=== PATIENT | female | born 2000 | race Caucasian/White ===

== ENCOUNTER 2021-06-21 09:41 | Observation (INO) | payer OTHER ==
[~2021-06-21] VITALS: Ht 162.6 cm; Wt 127.0 kg
[2021-06-21 11:15] LABS: CLARITY URINE CLOUDY (CLEAR); COLOR URINE YELLOW (YELLOW); KETONES URINE TRACE (NEGATIVE); LEUKOCYTE ESTERASE URINE 2+ (NEGATIVE); NITRITE URINE NEGATIVE (NEGATIVE); OCCULT BLOOD URINE 2+ (NEGATIVE); PROTEIN URINE TRACE (NEGATIVE); SPECIFIC GRAVITY URINE 1.026 (1.005-1.030)
[2021-06-21] MEDS: LACTATED RINGERS 1,000 ML IV SCH ×2 (12:15→13:23)
[2021-06-21] MEDS ORDERED: CEFAZOLIN 2,000 MG in DEXT 5% WATER 100 ML IV NR (13:00)
== END 2021-06-21 17:30 | disposition home or self-care (01) ==
LOC: 8 EST LDRP 09:41
PROVIDERS: ADMIT Obstetrics & Gynecology; ATTEND Obstetrics & Gynecology
DX: O46.93 Antepartum hemorrhage, unspecified, third trimester (principal); O26.893 Other specified pregnancy related conditions, third trimester; R10.9 Unspecified abdominal pain; Z3A.29 29 weeks gestation of pregnancy
CPT/HCPCS: 59025; 76805; 76818; 81003; 96361; 96365; G0378; J0690; J7060; J7120; 99281

== ENCOUNTER 2021-08-28 10:06 | Inpatient (IN) | payer OTHER ==
[~2021-08-28] VITALS: Ht 167.6 cm; Wt 119.7 kg
[2021-08-28] MEDS ORDERED: METHYLERGONOVINE MALEATE 0.2 MG/ML IM PRN (11:00)
[2021-08-28] MEDS ORDERED: DEXT 5%/LR + PITOCIN 20UNITS/L 1,000 ML IV SCH (11:00)
[2021-08-28] MEDS ORDERED: NALOXONE HCL 0.4 MG/ML 1ML VIAL IM PRN (11:00)
[2021-08-28] MEDS ORDERED: LIDOCAINE HCL 1% 20ML VIAL (Pyxis) INJ INFIL SCH (11:00)
[2021-08-28 12:30] LABS: BASOPHILS % 0.2 % (0.0-2.0); EOSINOPHILS % 0.7 % (0.0-5.0); HEMATOCRIT. 32.3 % (36.0-48.0); HEMOGLOBIN. 10.4 g/dL (12.0-16.0); LYMPHOCYTES % 15.2 % (20.0-50.0); MEAN CORPUSCULAR VOLUME 77.7 fL (81.0-99.0); MEAN PLATELET VOLUME 10.9 fl (7.4-10.4); NEUTROPHILS % 76.9 % (40.0-76.0); PLATELET 186 x1000/uL (130-400); RED BLOOD CELL COUNT 4.16 mill/uL (4.2-5.4); RED CELL DISTRIBUTION WIDTH 15.9 % (11.6-14.6)
[2021-08-28] MEDS ORDERED: PENICILLIN G POTASSIUM 5 MMU in DEXT 5% WATER 100 ML IV SCH (12:30)
[2021-08-28 12:40] LABS: INR 0.9; PARTIAL THROMBOPLASTIN TIME 24.3 sec (23.4-31.0); PROTHROMBIN TIME 10.2 sec (9.6-11.0)
[2021-08-28 13:12] LABS: HEPATITIS B SURFACE ANTIGEN NEGATIVE
[2021-08-28] MEDS: LACTATED RINGERS 1,000 ML IV SCH ×2 (13:12→20:58)
[2021-08-28 13:17] LABS: CLARITY URINE CLEAR (CLEAR); COLOR URINE DARK YELLOW (YELLOW); KETONES URINE TRACE (NEGATIVE); LEUKOCYTE ESTERASE URINE TRACE (NEGATIVE); NITRITE URINE NEGATIVE (NEGATIVE); OCCULT BLOOD URINE NEGATIVE (NEGATIVE); PROTEIN URINE 1+ (NEGATIVE)
[2021-08-28 13:41] LABS: *AMPHETAMINES SCREEN URINE NEGATIVE (NEGATIVE); *BARBITURATES SCREEN URINE NEGATIVE (NEGATIVE); *BENZODIAZEPINES SCREEN URINE NEGATIVE (NEGATIVE); *COCAINE SCREEN URINE NEGATIVE (NEGATIVE); CANNABINOID URINE SCREEN NEGATIVE (NEGATIVE); METHADONE URINE SCREEN NEGATIVE (NEGATIVE); PHENCYCLIDINE URINE SCREEN NEGATIVE (NEGATIVE)
[2021-08-28 13:42] LABS: OPIATES URINE SCREEN NEGATIVE (NEGATIVE)
[2021-08-28] MEDS: PENICILLIN G POTASSIUM 2.5 MMU in DEXTROSE 5% WATER 50 ML IV SCH ×2 (18:15→22:20)
[2021-08-28] MEDS: BUTORPHANOL TARTRATE 2 MG/ML VIAL IV PRN ×2 (18:24→21:41)
[2021-08-28] MEDS ORDERED: ROPIVACAINE HCL/PF EPIDURAL 200 ML EPI ONE (23:51)
[2021-08-29] MEDS: LACTATED RINGERS 1,000 ML IV SCH (00:30)
[2021-08-29] MEDS ORDERED: RHO(D) IMMUNE GLOBULIN 300 MCG/SYR IM PRN (03:00)
[2021-08-29] MEDS ORDERED: BENZOCAINE/LANOLIN/ALOE VERA SPRAY TOP PRN (03:00)
[2021-08-29] MEDS ORDERED: DIPHENHYDRAMINE 25MG CAPSULE PO PRN (03:00)
[2021-08-29] MEDS ORDERED: HEMORRHOIDAL SUPP PR PRN (03:00)
[2021-08-29] MEDS ORDERED: LANOLIN OINT 7GM TUBE TOP PRN (03:00)
[2021-08-29] MEDS ORDERED: IBUPROFEN 400MG TABLET PO PRN (03:00)
[2021-08-29] MEDS ORDERED: DEXT 5%/LR + PITOCIN 20UNITS/L 1,000 ML IV SCH (03:00)
[2021-08-29] MEDS ORDERED: GLYCERIN/WITCH HAZEL LEAF MEDICATED PAD TOP PRN (03:00)
[2021-08-29] MEDS ORDERED: BISACODYL 10MG SUPP PR PRN (03:00)
[2021-08-29 03:45] VITALS: BP 135/74
[2021-08-29] MEDS: IBUPROFEN 800MG TABLET PO PRN ×2 (04:04→13:21)
[2021-08-29 07:55] VITALS: BP 117/69
[2021-08-29] MEDS: MAGNESIUM/ALUMINUM HYDROXIDE/SIMETHICONE 30ML UDC PO SCH ×4 (08:11→21:17)
[2021-08-29] MEDS: PRENATAL VIT/FE FUMARATE/FA TABLET PO SCH (08:11)
[2021-08-29] MEDS: ACETAMINOPHEN WITH CODEINE 300/30MG TABLET PO PRN ×2 (08:11→18:51)
[2021-08-29] MEDS: SIMETHICONE 80MG TABLET CHEW PO SCH ×4 (08:12→21:17)
[2021-08-29 16:30] VITALS: BP_SYST 119; BP_SYST 135; BP_DIAS 49; BP_DIAS 71
[2021-08-29 20:00] VITALS: BP 131/56
[2021-08-29] MEDS ORDERED: DOCUSATE SODIUM 100MG CAPSULE PO SCH (21:00)
[2021-08-30] MEDS: IBUPROFEN 800MG TABLET PO PRN ×2 (00:49→10:01)
[2021-08-30 04:08] VITALS: BP 126/64
[2021-08-30] MEDS: ACETAMINOPHEN WITH CODEINE 300/30MG TABLET PO PRN (05:59)
[2021-08-30 06:59] LABS: BASOPHILS % 0.5 % (0.0-2.0); HEMATOCRIT. 29.2 % (36.0-48.0); HEMOGLOBIN. 9.6 g/dL (12.0-16.0); MEAN CORPUSCULAR HEMOGLOBIN 25.5 pg (28.0-32.0); MEAN CORPUSCULAR VOLUME 77.3 fL (81.0-99.0); MEAN PLATELET VOLUME 11.1 fl (7.4-10.4); MONOCYTES % 7.2 % (2.0-8.0); NEUTROPHILS % 67.3 % (40.0-76.0); PLATELET 160 x1000/uL (130-400); RED BLOOD CELL COUNT 3.78 mill/uL (4.2-5.4); RED CELL DISTRIBUTION WIDTH 15.9 % (11.6-14.6)
[2021-08-30] MEDS ORDERED: FERROUS SULFATE 325MG TABLET PO SCH (07:30)
[2021-08-30 08:30] VITALS: BP 124/68
[2021-08-30] MEDS: PRENATAL VIT/FE FUMARATE/FA TABLET PO SCH (10:01)
== END 2021-08-30 14:30 | disposition home or self-care (01) | DRG 560 ==
LOC: 8 EST LDRP 10:06 → 8EST 08-29 03:38
PROVIDERS: ADMIT Obstetrics & Gynecology; ATTEND Obstetrics & Gynecology
PROC: 10D07Z6 Extraction of Products of Conception, Vacuum, Via Natural or Artificial Opening (ICD-10-PCS; principal; 2021-08-28)
PROC: 3E0R3BZ Introduction of Anesthetic Agent into Spinal Canal, Percutaneous Approach (ICD-10-PCS; 2021-08-28)
PROC: 00HU33Z Insertion of Infusion Device into Spinal Canal, Percutaneous Approach (ICD-10-PCS; 2021-08-28)
DX: O69.81X0 Labor and delivery complicated by cord around neck, without compression, not applicable or unspecified (principal); Z37.0 Single live birth; O99.02 Anemia complicating childbirth; Z20.822 Contact with and (suspected) exposure to COVID-19; Z3A.39 39 weeks gestation of pregnancy
CPT/HCPCS: 36415; 80305; 81003; 85025; 86592; 86703; 86762; 86850; 86900; 87340; 87426; 99281; J0595; J2540; J2590; J2795; J7060; J7120